=== PATIENT | female | born 1965 | race Caucasian/White ===

== ENCOUNTER → 2025-04-22 13:55 | Outpatient (CLI) | payer OTHER, MEDICAID, SELFPAY | LOC: LAB 13:59 | PROVIDERS: Referring Provider Internal Medicine Cardiovascular Disease; Visit Provider Internal Medicine Cardiovascular Disease | DX: I35.8 Other nonrheumatic aortic valve disorders (principal) | CPT/HCPCS: 36415; 87040 ==

== ENCOUNTER 2025-05-26 14:04 | Emergency (ER) | payer OTHER, MEDICAID, SELFPAY ==
[2025-05-26 14:07] VITALS: BP 121/63; PULSE 77; RESP 18; TEMP 36.9; O2SAT 96; BMI 30.1
[2025-05-26 15:44] LABS: Appearance Urine UA CLEAR; Bilirubin Urine UA NEGATIVE (NEGATIVE); Color Urine UA YELLOW; Glucose Urine UA 3+ g/dL (Negative); Ketones Urine UA NEGATIVE (NEGATIVE); Leukocyte Esterase Urine UA NEGATIVE (NEGATIVE); Nitrite Urine UA NEGATIVE (Negative); Occult Blood Urine UA NEGATIVE (Negative); Protein Urine UA NEGATIVE (Negative); Specific Gravity Urine UA <=1.005 (1.000-1.035); Urobilinogen Urine UA 0.2 E.U./dL (0.2)
[2025-05-26 15:46] LABS: pH Urine UA 5.0 (4.5-8.0)
[2025-05-26 16:00] LABS: Culture Indicated Urine Cult Not Indicated
--- NOTE | 2025-05-26 16:29 | ED.NAVMDI ---
HPI - Nausea/Vomiting/Diarrhea <Jillian Lin PA-C - Last Filed: 05/26/25 17:46> General Chief complaint: Nausea/Vomiting/Diarrhea Stated complaint: possible parasites - e coli 7 days ago Time Seen by Provider: 05/26/25 14:20 Source: patient Mode of arrival: Ambulatory History of Present Illness HPI Narrative: 60-year-old female with past medical history diabetes presents to the ED with 2 weeks of ongoing diarrhea, abdominal cramping. Patient had an acute onset of diarrhea after she ate sushi at above a 2 weeks ago, following which she was seen at [facility] and a GI panel was obtained. GI panel was positive for E coli EPEC and Enteroaggr EColi. Patient was sent home with a course of azithromycin. States it her diarrhea has continued until today when she took a loperamide and she had a well-formed stool. She also complains of cramping when she has a bowel movement. No nausea, vomiting, fever, chills. Patient has been hydrating well. Patient presents to the ED today since she has not recovered from the infection completely. Related Data Allergies Allergy/AdvReac Type Severity Reaction Status Date / Time semaglutide (From Ozempic) Allergy Verified 05/26/25 14:08 metformin AdvReac Intermediate Vomiting Verified 05/26/25 14:08 Review of Systems <Jillian Lin PA-C - Last Filed: 05/26/25 17:46> Constitutional Constitutional: Denies chills, Denies fatigue, Denies fever(s), Denies frequent falls, Denies lethargy and Denies weakness Eyes Eyes: Denies change in vision, Denies eye discharge, Denies irritation and Denies loss of vision ENT Ears, Nose, Mouth, and Throat: Denies change in voice, Denies dizziness, Denies neck pain, Denies sore throat and Denies throat swelling Cardiovascular Cardiovascular: Denies chest pain, Denies irregular heart rhythm, Denies lightheadedness, Denies palpitations, Denies dyspnea, Denies dyspnea on exertion and Denies orthopnea Respiratory Respiratory: Denies cough, Denies dyspnea, Denies dyspnea on exertion and Denies wheezing Gastrointestinal Gastrointestinal: Denies abdominal pain, Denies change in bowel habits, Reports cramping, Reports diarrhea, Denies nausea and Denies vomiting Musculoskeletal Musculoskeletal: Denies neck pain and Denies numbness Integumentary/Breasts Skin/Breast: Denies pruritus, Denies erythema, Denies rash and Denies wounds Neurologic Neurologic: Denies behavioral changes, Denies confusion, Denies dizziness, Denies frequent falls, Denies loss of vision, Denies numbness and Denies weakness Psychiatric Psychiatric: Denies anxiety, Denies behavioral changes, Denies confusion, Denies depression, Denies homicidal ideation and Denies suicidal ideation Endocrine Endocrine: Denies fatigue, Denies flushing and Denies palpitations Hematologic/Lymphatic Hematologic/Lymphatic: Denies easy bruising Allergic/Immunologic Allergic/Immunologic: Denies urticaria, Denies throat swelling and Denies wheezing Patient History <Jillian Lin PA-C - Last Filed: 05/26/25 17:46> Medical History E coli infection Social History Smoking Status: Never smoker Smoking Status: Never smoker Exam <Jillian Lin PA-C - Last Filed: 05/26/25 17:46> Narrative Exam Narrative: Const General:?cooperative, healthy appearing and comfortable [facility] Head:?normal to inspection Ears:?hearing grossly normal bilaterally Nose:?external nose normal Face and sinus:?normal facial exam and sinuses nontender Mouth:?oral mucosae normal Throat:?posterior oropharynx normal Eyes General:?appearance normal, both eyes and all related structures Neck Neck:?normal visual inspection and no lymphadenopathy noted Resp Effort & Inspection:?normal respiratory effort Auscultation:?clear to auscultation bilaterally Cardio Rate:?regular rate Rhythm:?regular rhythm GI Abdomen is soft, nondistended, nontender to palpation. Neuro General:?patient alert, patient awake and patient oriented x3 Initial Vital Signs Initial Vital Signs: Vital Signs Temperature 98.5 F 05/26/25 14:07 Pulse Rate 77 05/26/25 14:07 Respiratory Rate 18 05/26/25 14:07 Blood Pressure 121/63 05/26/25 14:07 Pulse Oximetry 96 05/26/25 14:07 Oxygen Delivery Method Room Air 05/26/25 14:07 <Helder Cheney MD - Last Filed: 05/26/25 19:13> Initial Vital Signs Initial Vital Signs: Vital Signs Temperature 98.5 F 05/26/25 14:07 Pulse Rate 77 05/26/25 14:07 Respiratory Rate 18 05/26/25 14:07 Blood Pressure 121/63 05/26/25 14:07 Pulse Oximetry 96 05/26/25 14:07 Oxygen Delivery Method Room Air 05/26/25 14:07 Course <Jillian Lin PA-C - Last Filed: 05/26/25 17:46> Orders Ordered: ED Orders 05/26/25 15:28 GI Panel (Film Array) Stat Urinalysis and Microscopic Stat Vital Signs Vital signs: Vital Signs - 8 hr 05/26/25 14:07 05/26/25 17:22 Temperature 98.5 F Pulse Rate 77 75 Respiratory Rate 18 16 Blood Pressure 121/63 120/61 Pulse Oximetry 96 98 Oxygen Delivery Method Room Air Room Air <Helder Cheney MD - Last Filed: 05/26/25 19:13> Orders Ordered: ED Orders 05/26/25 15:28 GI Panel (Film Array) Stat Urinalysis and Microscopic Stat Vital Signs Vital signs: Vital Signs - 8 hr 05/26/25 14:07 05/26/25 17:22 Temperature 98.5 F Pulse Rate 77 75 Respiratory Rate 18 16 Blood Pressure 121/63 120/61 Pulse Oximetry 96 98 Oxygen Delivery Method Room Air Room Air MDM - Nausea/Vomiting/Diarrhea <Jillian Lin PA-C - Last Filed: 05/26/25 17:46> Lab Data Labs: Lab Results 05/26/25 Range/Units 15:28 Urine Color Yellow Urine Appearance Clear Urine pH 5.0 (4.5-8.0) Ur Specific [place] <=1.005 (1.000-1.035) Urine Protein Negative (Negative) Urine Glucose (UA) 3+ H (Negative) g/dL Urine Ketones Negative (NEGATIVE) Urine Occult Blood Negative (Negative) Urine Nitrate Negative (Negative) Urine Bilirubin Negative (NEGATIVE) Urine Urobilinogen 0.2 (0.2) E.U./dL Ur Leukocyte Esterase Negative (NEGATIVE) Urine RBC None seen (0-5/HPF) Urine WBC 0-1/hpf (0-5/HPF) Ur Squamous Epith Cells 0-1 /hpf (0-5/HPF) Urine Bacteria None seen (None) Ur Culture Indicated? Cult not indicated Vol Urine Centrifuged 10ml (spun) Stl C. cayetanensis PCR Not detected (Not Detect) Stool Rotavirus (PCR) Not detected (Not Detect) Stool Adenovirus (PCR) Not detected (Not Detect) Stool Astrovirus (PCR) Not detected (Not Detect) Stool Cryptosporidium PCR Not detected (Not Detect) Stl E.coli Shiga Tox PCR Not detected (Not Detect) St Sh/Enteroin Ecoli PCR Not detected (Not Detect) Stl Enterotoxigenic E PCR Not detected (Not Detect) Stool EPEC (PCR) Detected (Not Detect) Stl E. histolytica PCR Not detected (Not Detect) Stool Giardia Lamblia PCR Not detected (Not Detect) Stool Sapovirus (PCR) Not detected (Not Detect) Stl P. shigelloides PCR Not detected (Not Detect) St Y.enterocolitica PCR Not detected (Not Detect) Stool Vibrio (PCR) Not detected (Not Detect) Stl Vibrio cholerae PCR Not detected (Not Detect) Stl Enteroaggr Ecoli PCR Not detected (Not Detect) Stl Norovirus GI/GII PCR Not detected (Not Detect) Campylobacter (PCR) Not detected (Not Detect) C. difficile Tox (PCR) Not detected (Not Detect) Salmonella (PCR) Not detected (Not Detect) MDM Narrative Medical decision making narrative: 60-year-old female with past medical history diabetes presents to the ED with 2 weeks of ongoing diarrhea, abdominal cramping. GI panel positive for E coli (EPEC). UA without UTI. Recommend supportive measures with good hydration, electrolyte repletion with electrolyte drinks, yogurt, fresh foods. Patient can continue loperamide if she continues to have diarrhea. Recommend follow-up with PCP as soon as possible. ED return precautions were discussed with patient. Patient verbalized understanding. Medical records reviewed: Yes <Helder Cheney MD - Last Filed: 05/26/25 19:13> Lab Data Labs: Lab Results 05/26/25 Range/Units 15:28 Urine Color Yellow Urine Appearance Clear Urine pH 5.0 (4.5-8.0) Ur Specific [place] <=1.005 (1.000-1.035) Urine Protein Negative (Negative) Urine Glucose (UA) 3+ H (Negative) g/dL Urine Ketones Negative (NEGATIVE) Urine Occult Blood Negative (Negative) Urine Nitrate Negative (Negative) Urine Bilirubin Negative (NEGATIVE) Urine Urobilinogen 0.2 (0.2) E.U./dL Ur Leukocyte Esterase Negative (NEGATIVE) Urine RBC None seen (0-5/HPF) Urine WBC 0-1/hpf (0-5/HPF) Ur Squamous Epith Cells 0-1 /hpf (0-5/HPF) Urine Bacteria None seen (None) Ur Culture Indicated? Cult not indicated Vol Urine Centrifuged 10ml (spun) Stl C. cayetanensis PCR Not detected (Not Detect) Stool Rotavirus (PCR) Not detected (Not Detect) Stool Adenovirus (PCR) Not detected (Not Detect) Stool Astrovirus (PCR) Not detected (Not Detect) Stool Cryptosporidium PCR Not detected (Not Detect) Stl E.coli Shiga Tox PCR Not detected (Not Detect) St Sh/Enteroin Ecoli PCR Not detected (Not Detect) Stl Enterotoxigenic E PCR Not detected (Not Detect) Stool EPEC (PCR) Detected (Not Detect) Stl E. histolytica PCR Not detected (Not Detect) Stool Giardia Lamblia PCR Not detected (Not Detect) Stool Sapovirus (PCR) Not detected (Not Detect) Stl P. shigelloides PCR Not detected (Not Detect) St Y.enterocolitica PCR Not detected (Not Detect) Stool Vibrio (PCR) Not detected (Not Detect) Stl Vibrio cholerae PCR Not detected (Not Detect) Stl Enteroaggr Ecoli PCR Not detected (Not Detect) Stl Norovirus GI/GII PCR Not detected (Not Detect) Campylobacter (PCR) Not detected (Not Detect) C. difficile Tox (PCR) Not detected (Not Detect) Salmonella (PCR) Not detected (Not Detect) MDM Narrative Medical decision making narrative: 60-year-old female with past medical history diabetes presents to the ED with 2 weeks of ongoing diarrhea, abdominal cramping. GI panel positive for E coli (EPEC). UA without UTI. Recommend supportive measures with good hydration, electrolyte repletion with electrolyte drinks, yogurt, fresh foods. Patient can continue loperamide if she continues to have diarrhea. Recommend follow-up with PCP as soon as possible. ED return precautions were discussed with patient. Patient verbalized understanding. Medical records reviewed: Yes I was available for consult but did not actually see the patient. Discharge Plan Departure Patient Disposition: Home Clinical Impression: E. coli enteritis Instructions: DI for Escherichia Coli (E. Coli) Infection Activity Restrictions/Additional Instructions: You were evaluated in the ED today for diarrhea and abdominal cramping. Your stool was reexamined today which was again positive for E coli. E coli can test positive in your stool for several weeks after the infection. It is reassuring to note that your diarrhea is resolving. You may continue to take loperamide if your diarrhea continues. Please ensure good hydration with plenty of water, electrolytes, fresh foods. Yogurt is an excellent probiotic food for your gut health. Please follow-up with your PCP as soon as possible. Return to the ED if you have worsening symptoms. Stand Alone Forms: Patient Portal/API
[2025-05-26 17:01] LABS: Clostridium difficile toxin AB Not Detected (Not Detect); Enteroaggregative E.coli Not Detected (Not Detect); Enteropathogenic E.coli Detected (Not Detect); Enterotoxigenic E.coli It/st Not Detected (Not Detect); Plesiomonsa shigelloides Not Detected (Not Detect); Shiga-like toxin-prod E.coli Not Detected (Not Detect)
[2025-05-26 17:22] VITALS: BP 120/61; PULSE 75; RESP 16; O2SAT 98
== END 2025-05-26 17:24 | disposition home or self-care (01) ==
PROVIDERS: Emergency Provider Student in an Organized Health Care Education/Training Program
DX: A04.4 Other intestinal Escherichia coli infections (principal); R10.9 Unspecified abdominal pain
CPT/HCPCS: 81001; 87507; 99281; 99283

== ENCOUNTER 2025-06-01 07:51 | Emergency (ER) | payer OTHER, MEDICAID, SELFPAY ==
[2025-06-01] VITALS (21 sets, daily range): BP systolic 94–139; BP diastolic 58–81; PULSE 66–92; RESP 16; TEMP 37–37.1; O2SAT 94–98; BMI 30.1
[2025-06-01 08:22] LABS: Culture Indicated Urine Specimen Cultured
[2025-06-01] MEDS: ACETAMINOPHEN 325 MG TABLET 650 MG PO (09:41)
--- NOTE | 2025-06-01 10:10 | DI.CT.S_ITS ---
PROCEDURE: CT ABDOMEN PELVIS W CON INDICATIONS: abdominal pain worsening TECHNIQUE: After the administration of intravenous contrast, axial sections acquired from the lung bases to the pubic symphysis. Coronal and sagittal reformats were performed. For radiation dose reduction, the following was used: automated exposure control, adjustment of mA and/or kV according to patient size. COMPARISON: None. FINDINGS: Image quality: Diagnostic. Lower Chest: Pacemaker leads are seen. Right pericardial hernia is seen containing multiple small bowel loops with mild adjacent right basilar dependent atelectasis. Heart size is normal, no pericardial effusion. ABDOMEN: Liver: No solid mass. Gallbladder: No radiopaque gallstones or wall thickening. Biliary ducts: No biliary dilation. Pancreas: No ductal dilation. Spleen: Size is within normal limits. Adrenal Glands: No adrenal nodules. Kidneys and Ureters: No hydronephrosis. No solid mass. No complex renal cystic lesion which requires follow up. Stomach and Bowel: There is no bowel obstruction. No abnormal bowel wall thickening or mesenteric fat stranding. Appendix is not definitively seen. No focal inflammatory changes are noted in right lower quadrant abdomen. Moderate fecal stasis in the colon is noted. No abscess collection. Colonic diverticulosis without CT evidence of acute diverticulitis. Peritoneum: No abnormal intraperitoneal fluid. No free air. Ventral Wall: No significant ventral hernia. Abdominal Nodes: No retroperitoneal or mesenteric adenopathy by size criteria. Vessels: Aorta and inferior vena cava are normal in size. PELVIS: Pelvic Organs: Unremarkable. Bladder: Mild diffuse bladder wall thickening. No discrete bladder wall mass or calcified bladder stones. Pelvic Nodes: No enlarged lymph nodes. Miscellaneous: No inguinal hernias are seen. Bones: No aggressive osseous abnormality. IMPRESSION: 1. Mild constipation. No bowel obstruction or abnormal bowel wall thickening. Colonic diverticulosis without CT evidence of acute diverticulitis. No evidence of acute appendicitis. No free fluid or free air. 2. No obstructing renal stones or hydronephrosis. Mild bladder wall thickening, low-grade cystitis cannot be excluded. Clinical correlation is recommended. 3. Right pericardial hernia containing small bowel loops. Dictated by: Doroteo Crowder M.D. on 06/01/2025 at 11:46 Approved by: Doroteo Crowder M.D. on 06/01/2025 at 11:59
[2025-06-01 10:19] LABS: Add Manual Diff / Slide Review NO; Hematocrit 41.5 % (36-46); Hemoglobin 14.1 g/dL (12.0-16.0); Lymphocytes Absolute Auto 2100 /uL (1100-4500); Mean Corpuscular HGB Conc 34.0 % (30-36); Mean Corpuscular Hemoglobin 32.2 PG (26-34); Mean Corpuscular Volume 94.7 fL (80-100); Platelet Count 215 X10^3/uL (150-400)
[2025-06-01 10:26] LABS: Alanine Aminotransferase 22 IU/L (<35); Albumin 4.2 g/dL (3.5-5.0); Albumin Globulin Ratio 1.3 (1.0-2.8); Alkaline Phosphatase 71 U/L (38-126); Blood Urea Nitrogen 18 mg/dL (7-17); Calcium 8.9 mg/dL (8.4-10.2); Carbon Dioxide 22 mmol/L (22-32); Chloride 107 mmol/L (98-107); Estimated Glomerular Filt Rate > 60 mL/min (>60); Globulin 3.3 g/dL (1.7-4.1); Glucose 111 mg/dL (70-99); HEMOLYSIS 17 (0-50); Lipase 46 U/L (23-300); Potassium 4.2 mmol/L (3.4-5.1); Sodium 138 mmol/L (137-145); Total Protein 7.5 g/dL (6.3-8.2)
--- NOTE | 2025-06-01 13:38 | ED_ITS ---
HPI - Abdominal Pain General Chief Complaint: Abdominal Pain Stated Complaint: severe abd pain- has e coli, treated last week Time Seen by Provider: 06/01/25 07:54 Source: patient Mode of arrival: Ambulatory History of Present Illness HPI narrative: 60-year-old female who was seen at [facility] for prolonged diarrhea after eating some sushi. Her stool sample tested positive for E coli non Shiga toxin. She is given some azithromycin and advised to hydrate very well. She is a known diabetic and complains of some left-sided and generalized abdominal discomfort that started all day today. She denies any diarrhea, no blood in the stool, no symptoms. Related Data Previous Rx's ?Medication ?Instructions ?Recorded nitrofurantoin 100 mg PO Q12H 7 days #14 ca ps 06/01/25 monohydrate/macrocrystals 100 mg capsule (Macrobid) Allergies Allergy/AdvReac Type Severity Reaction Status Date / Time semaglutide (From Ozempic) Allergy Verified 06/01/25 08:14 metformin AdvReac Intermediate Vomiting Verified 06/01/25 08:14 Review of Systems Review of Systems ROS Unobtainable: All systems reviewed & are unremarkable except as noted in HPI and below Patient History Medical History E coli infection Smoking Status: Never smoker Exam Narrative Exam Narrative: General: Patient appears to be in no acute distress, acting appropriately Head: normocephalic, atraumatic, HEENT: Pupils equal round reactive, eyes tracking well, neck supple, no JVD Heart: regular rate and rhythm, no murmurs, rubs, or gallops heard Lungs: clear to auscultation, no adventitious sounds Abdomen: soft , mildly tender to palpation over left sided and mid abdominal area, nondistended, positive bowel sounds Neurological: no focal neurological signs, moving all extremities well, alert and oriented x3, Psych: good judgment ,good insight, mood is normal. Initial Vital Signs Initial Vital Signs: Vital Signs Pulse Rate 92 H 06/01/25 08:00 Pulse Oximetry 97 06/01/25 08:00 Course Course Course Narrative: We will do an abdominal pain workup with labs and imaging. Orders Ordered: ED Orders 06/01/25 08:03 Urine Culture Stat Urine Microscopic Stat 06/01/25 09:25 CBC Auto Diff [Complete Blood Count AUTO DIFF] Stat CMP [Comprehensive Metabolic Panel] Stat Lipase Stat 06/01/25 10:10 CT abdomen pelvis w con Stat Lactated Ringer's (Lactated Ringers) 1,000 mls @ 1,000 mls/hr IV BOLUS ONE Stop: 06/01/25 14:39 Last Admin: 06/01/25 13:50 Dose: Not Given Discontinued Medications Acetaminophen (Acetaminophen 325 Mg Tablet) 650 mg PO NOW ONE Stop: 06/01/25 09:30 Last Admin: 06/01/25 09:41 Dose: 650 mg Documented By: Ketorolac Tromethamine (Ketorolac 30 Mg/Ml Vial) 15 mg IV NOW ONE Stop: 06/01/25 13:34 Last Admin: 06/01/25 13:44 Dose: 15 mg Vital Signs Vital signs: Vital Signs - 8 hr 06/01/25 08:00 06/01/25 08:01 06/01/25 08:01 Temperature Pulse Rate 92 H 89 Respiratory Rate Blood Pressure 120/67 Pulse Oximetry 97 97 Oxygen Delivery Method 06/01/25 08:14 06/01/25 08:30 06/01/25 08:30 Temperature 98.8 F Pulse Rate 80 76 Respiratory Rate 16 Blood Pressure 120/67 107/58 L Pulse Oximetry 97 94 Oxygen Delivery Method Room Air 06/01/25 09:10 06/01/25 09:11 06/01/25 09:11 Temperature Pulse Rate 75 78 Respiratory Rate Blood Pressure 109/65 Pulse Oximetry 96 95 Oxygen Delivery Method Room Air 06/01/25 09:30 06/01/25 09:30 06/01/25 10:00 Temperature Pulse Rate 79 79 Respiratory Rate Blood Pressure 94/65 Pulse Oximetry 95 95 Oxygen Delivery Method 06/01/25 10:01 06/01/25 10:01 06/01/25 10:30 Temperature Pulse Rate 83 Respiratory Rate Blood Pressure 112/66 117/76 Pulse Oximetry 96 Oxygen Delivery Method 06/01/25 10:30 06/01/25 10:30 06/01/25 11:00 Temperature Pulse Rate 78 81 Respiratory Rate Blood Pressure 117/76 Pulse Oximetry 96 96 Oxygen Delivery Method 06/01/25 11:01 06/01/25 11:01 06/01/25 11:31 Temperature Pulse Rate 78 86 Respiratory Rate Blood Pressure 134/75 Pulse Oximetry 96 97 Oxygen Delivery Method 06/01/25 11:32 06/01/25 11:32 06/01/25 12:00 Temperature Pulse Rate 86 75 Respiratory Rate Blood Pressure 139/64 Pulse Oximetry 97 97 Oxygen Delivery Method 06/01/25 12:00 06/01/25 12:30 06/01/25 12:30 Temperature Pulse Rate 79 Respiratory Rate Blood Pressure 136/81 129/74 Pulse Oximetry 96 Oxygen Delivery Method 06/01/25 13:00 06/01/25 13:00 06/01/25 13:28 Temperature Pulse Rate 75 76 Respiratory Rate Blood Pressure 112/74 Pulse Oximetry 96 96 Oxygen Delivery Method 06/01/25 13:28 06/01/25 13:30 06/01/25 13:31 Temperature Pulse Rate 82 Respiratory Rate Blood Pressure 99/62 102/60 Pulse Oximetry 96 Oxygen Delivery Method 06/01/25 13:31 Temperature Pulse Rate 82 Respiratory Rate Blood Pressure Pulse Oximetry 96 Oxygen Delivery Method MDM - Abdominal Pain Lab Data 06/01/25 09:25 06/01/25 09:25 Labs: Lab Results 06/01/25 06/01/25 Range/Units 08:03 09:25 WBC 8.8 (4.5-11.0) X10^3/uL RBC 4.38 (4.0-5.2) X10^6/uL Hgb 14.1 (12.0-16.0) g/dL Hct 41.5 (36-46) % MCV 94.7 (80-100) fL MCH 32.2 (26-34) PG MCHC 34.0 (30-36) % RDW 12.6 (11.6-14.8) % Plt Count 215 (150-400) X10^3/uL Neut % (Auto) 61.7 (50-75) % Lymph % (Auto) 24.1 L (25-40) % [place] % (Auto) 10.6 (3-14) % Eos % (Auto) 3.0 (2-4) % Baso % (Auto) 0.6 (0-2) % Neut # (Auto) 5400 (0527-5402) /uL Lymph # (Auto) 2100 (1341-1877) /uL [place] # (Auto) 900 (0-900) /uL Eos # (Auto) 300 (0-450) /uL Baso # (Auto) 100 (0-100) /uL Sodium 138 (137-145) mmol/L Potassium 4.2 (3.4-5.1) mmol/L Chloride 107 (98-107) mmol/L Carbon Dioxide 22 (22-32) mmol/L BUN 18 H (7-17) mg/dL Creatinine 0.50 L (0.52-1.04) mg/dL Estimated GFR > 60 (>60) mL/min BUN/Creatinine Ratio 36.0 H (6-22) Glucose 111 H (70-99) mg/dL Calcium 8.9 (8.4-10.2) mg/dL Total Bilirubin 0.5 (0.2-1.3) mg/dL AST 55 H (14-36) IU/L ALT 22 (<35) IU/L Alkaline Phosphatase 71 (38-126) U/L Total Protein 7.5 (6.3-8.2) g/dL Albumin 4.2 (3.5-5.0) g/dL Globulin 3.3 (1.7-4.1) g/dL Albumin/Globulin Ratio 1.3 (1.0-2.8) Lipase 46 (23-300) U/L Urine RBC 1-5/hpf (0-5/HPF) Urine WBC 5-10/hpf H (0-5/HPF) Ur Squamous Epith Cells 1-5 /hpf (0-5/HPF) Urine Bacteria Moderate (10-30) H (None) Ur Culture Indicated? Specimen cultured Vol Urine Centrifuged 10ml (spun) Point of care testing: Urine Dip Bedside Urine Glucose 1000 mg/dl Bedside Urine Bilirubin - Negative Bedside Urine Ketone - Negative Urine Specific [place] 1.000 Bedside Urine Occult Blood + Bedside Urine pH 6.0 Bedside Urine Protein - Negative Bedside Urine Urobilinogen - Negative Bedside Urine Nitrite - Negative Bedside Urine Leukocytes + [address] scan - abdomen/pelvis: Radiologist's Impression: 1. Mild constipation. No bowel obstruction or abnormal bowel wall thickening. Colonic diverticulosis without CT evidence of acute diverticulitis. No evidence of acute appendicitis. No free fluid or free air. 2. No obstructing renal stones or hydronephrosis. Mild bladder wall thickening, low-grade cystitis cannot be excluded. Clinical correlation is recommended. 3. Right pericardial hernia containing small bowel loops. MDM Narrative Medical decision making narrative: Patient's abdominal pain improved a little bit but not to the point where it went away completely. Patient was eager to leave due to her ride leaving before further investigation could be done. Patient was given Toradol for her pain and Macrobid was prescribed for her acute cystitis picture due to the patient complaining of some burning with urination and having some white cells on her urine. Patient advised to go on a soft liquid diet for now until her pain resolves. We will follow up if abdominal pain worsens. Discharge Plan Departure Patient Disposition: Home Clinical Impression: Diverticulosis, Cystitis Instructions: DI for Urinary Tract Infection (UTI), DI for Diverticulosis Activity Restrictions/Additional Instructions: Stay on softer diet maybe even liquid diet until stomach pain improves. Take the antibiotic as prescribed. If symptoms do not improve come back to ER. Prescriptions: New nitrofurantoin monohyd/m-cryst [Macrobid] 100 mg capsule 100 mg PO Q12H 7 Days Qty: 14 0RF Rx Instructions: must administer with a meal/food Stand Alone Forms: Patient Portal/API
[2025-06-01] MEDS: KETOROLAC 30 MG/ML VIAL 15 MG IV (13:44)
--- NOTE | 2025-06-01 13:50 | PC.NURSE ---
Pt says that she doesn't want to stay anymore. Refused LR fluids. Dr Taylor notified. in room with pt.
== END 2025-06-01 14:02 | disposition home or self-care (01) ==
PROVIDERS: Emergency Provider Family Medicine
DX: K57.30 Diverticulosis of large intestine without perforation or abscess without bleeding (principal); N30.90 Cystitis, unspecified without hematuria; E11.9 Type 2 diabetes mellitus without complications
CPT/HCPCS: 36415; 74177; 80053; 81003; 81015; 83690; 85025; 87077; 87086; 87177; 87186; 96374; 99284; J1885; Q9967